=== PATIENT | male | born 1955 | race Caucasian/White ===

== ENCOUNTER 2017-01-30 18:34 | Emergency (ER) | payer SELFPAY ==
[2017-01-30 18:36] VITALS: BP 187/97; PULSE 84; RESP 15; TEMP 98.2; O2SAT 98
--- NOTE | 2017-01-30 18:38 | PD ---
Physical Exam Time Seen by Provider: 18:37 Narrative 61 y/o male presents requesting an alcohol test to prove to his job that he was not drinking at work today. Vital signs reviewed Seen at triage desk. awaiting bed placement. Data Data Last Documented VS Vital Signs Date Time Temp Pulse Resp B/P Pulse Ox O2 Delivery O2 Flow Rate FiO2 01/30/17 18:36 98.2 84 15 187/97 98 MDM Medical Record Reviewed: Yes Supervised Visit with SELINA: Escobar Gimenez January 30, 2017 18:38
[2017-01-30] MEDS ORDERED: SACU1TAB PO ×2 (18:54)
--- NOTE | 2017-01-30 19:22 | PD ---
HPI Chief Complaint: Alcohol/Drug Intoxication Time Seen by Provider: 19:19 Travel History International Travel<30 days: No Contact w/Intl Traveler<30days: No Traveled to known affect area: No History of Present Illness HPI 61-year-old white male presents to emergency department requesting a alcohol level. 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 He states that the company that he works for was notified approximately 3:00 this afternoon that they were concerned that the patient smelled of alcohol and was sent home. He is here to document that he is not consuming alcohol. The patient states that he is sober. He has not drank alcohol in several months. He denies any drugs. Patient denies any medical complaints at this time. History Past Medical Histgory Narrative Medical Diabetes, hypertension, CHF, hyper cholesterolemia Tetanus Vaccination: > 5 Years Past Surgical History Narrative Surgical Tonsillectomy, herniorrhaphy Social History Alcohol Use: No Tobacco Use: Yes (chew) Allergies-Medications (Allergen,Severity, Reaction): Coded Allergies: No Known Allergies (Unverified , 01/30/17) Reported Meds & Prescriptions Reported Meds & Active Scripts Active Reported Entresto (Sacubitril-Valsartan) 24-26 Mg Tab 1 Tab PO BID Review of Systems Except as stated in HPI: all other systems reviewed are Neg Physical Exam Narrative GENERAL: This is a well-nourished, well-developed patient, in no apparent distress. No odor of alcohol noted. SKIN: No rashes, ecchymoses or lesions. Warm and dry. HEAD: Atraumatic. Normocephalic. EYES: PERRL, EOMI, no discharge or injection. No scleral icterus. EARS: Clear NOSE: Nasal turbinates appear normal. THROAT: Mucosa pink and moist. Airway patent. NECK: Trachea midline. supple, moves head freely. LUNGS: Clear to auscultation. CV: Regular in rhythm. ABDOMEN: Soft nontender. EXT: No clubbing cyanosis or edema. Neuro: Patient is alert and oriented 3. Moves all extremities well and coordinated fashion. Data Data Last Documented VS Vital Signs Date Time Temp Pulse Resp B/P Pulse Ox O2 Delivery O2 Flow Rate FiO2 01/30/17 18:36 98.2 84 15 187/97 98 Orders Drug Screen, Random Urine (01/30/17 19:29) Alcohol (Ethanol) (01/30/17 19:29) Labs Laboratory Tests Test 01/30/17 19:33 Urine Opiates Screen NEG Urine Barbiturates Screen NEG Urine Amphetamines Screen NEG Urine Benzodiazepines Screen NEG Urine Cocaine Screen NEG Urine Cannabinoids Screen NEG Ethyl Alcohol Level LESS THAN 3 MG/DL MDM Medical Screen Exam Complete: Yes Emergency Medical Condition: No Text Interpretation(s) Laboratory Tests Test 01/30/17 19:33 Urine Opiates Screen NEG Urine Barbiturates Screen NEG Urine Amphetamines Screen NEG Urine Benzodiazepines Screen NEG Urine Cocaine Screen NEG Urine Cannabinoids Screen NEG Ethyl Alcohol Level LESS THAN 3 MG/DL Differential Diagnosis Differential diagnosis: Alcohol intoxication, medical screening exam, substance abuse Narrative Course A medical screening exam was performed: At the time of evaluation the presenting medical condition was determined not to be of an emergent nature. The patient was given the option of receiving additional care, but declined. Patient was given options for additional community resources from which to obtain care. The Patient Has Been advised to seek medical attention for their presenting complaint. The patient has been advised to return to the ER at any time if an emergent condition develops. Plan The patient drug screen and EtOH are negative Primary Impression: medical clearance exam Patient Instructions: General Instructions Additional Instructions: Rest. Follow-up with a medical doctor as needed. Return to the ER for emergencies. Med/Other Pt SpecificInfo: No Meds Exist/No RX given Disposition: 01 DISCHARGE HOME Condition: Stable Dominic Suggs January 30, 2017 19:22
[2017-01-30 20:22] LABS: AMPHETAMINE, URINE NEG (NEG); BARBITURATES, URINE NEG (NEG); COCAINE, URINE NEG (NEG)
== END 2017-01-30 20:44 | disposition home or self-care (01) ==
LOC: NEPK 18:34
DX: Z04.8 Encounter for examination and observation for other specified reasons (principal)
CPT/HCPCS: 80307; 99281